=== PATIENT | male | born 1960 | race Asian ===

== ENCOUNTER 2017-06-08 20:38 | Emergency (ER) | payer SELFPAY ==
[~2017-06-08] VITALS: Ht 172.7 cm; Wt 76.0 kg
[2017-06-08 20:40] VITALS: Ht 172.7 cm; Wt 76.0 kg
--- NOTE | 2017-06-08 21:19 | ERD ---
ER Documentation Chief Complaint Date/Time DATE: 06/08/17 TIME: 21:17 Chief Complaint FELL OFF LADDER AT WORK AND HURT LEFT WRIST HPI 57-year-old male presents to emergency department for complaints of left wrist pain and swelling after landing on it while falling off the ladder tonight while at work. Patient described the pain as throbbing pain, 8/10 scale, is worse upon movement accompanied with swelling. Patient did not take any medication to help with symptoms. Denies any numbness or tingling. ROS All systems reviewed and are negative except as per history of present illness. Medications Home Meds Reported Medications [none] Unknown Strength No Conflict Check 06/08/17 Allergies Allergies: Coded Allergies: No Known Allergy (Unverified , 06/08/17) PMhx/Soc Medical and Surgical Hx: pt denies Medical Hx, pt denies Surgical Hx History of Surgery: No Anesthesia Reaction: No Hx Neurological Disorder: No Hx Respiratory Disorders: No Hx Cardiac Disorders: No Hx Psychiatric Problems: No Hx Miscellaneous Medical Probl: No Hx Alcohol Use: No Hx Substance Use: No Hx Tobacco Use: No Smoking Status: Never smoker FmHx Family History: No coronary disease, No diabetes, No other Physical Exam Vitals Vital Signs Date Time Temp Pulse Resp B/P Pulse Ox O2 Delivery O2 Flow Rate FiO2 06/08/17 20:40 100.0 109 18 135/79 95 Physical Exam GENERAL: The patient is well developed and appropriate for usual state of health, in no apparent distress. CHEST: Clear to auscultation bilaterally. There are no rales, wheezes or rhonchi. HEART: Regular rate and rhythm. No murmurs, clicks, rubs or gallops. No S3 or S4. ABDOMEN: Soft, nontender and nondistended. Good bowel sounds. No rebound or guarding. No gross peritonitis. No gross organomegaly or masses. No Raman sign or McBurney point tenderness. BACK: No midline or flank tenderness. EXTREMITIES: Noted swelling and tenderness on palpation on the radial and ulnar aspect of the left wrist, and able to do full range of motion because of the pain and swelling. Equal pulses bilaterally. Full range of motion of other the joints of the body. Grossly neurovascularly intact. NEURO: Alert and oriented. Cranial nerves 2-12 intact. Motor strength in all 4 extremities with 5/5 strength. Sensation grossly intact. Normal speech and gait. SKIN: There is no apparent rash or petechia. The skin is warm and dry. HEMATOLOGIC AND LYMPHATIC: There is no evidence of excessive bruising or lymphedema. No gross cervical, axillary, or inguinal lymphadenopathy. Results 24 hrs Current Medications Medications (Trade) Dose Ordered Sig/Porsche Route PRN Reason Start Time Stop Time Status Last Admin Dose Admin Acetaminophen/ Hydrocodone Bitart (Osborn (5/325)) 1 tab ONCE ONCE PO 06/08/17 21:30 06/08/17 21:31 DC 06/08/17 21:25 Ibuprofen (Motrin) 600 mg ONCE ONCE PO 06/08/17 21:30 06/08/17 21:31 DC 06/08/17 21:25 Patient was given medication for pain here in emergency department, after treatment, patient verbalized feeling much better. Patient's pain is improved. PROCEDURE: Left wrist radiographs. CLINICAL INDICATION: Trauma due to a fall. Left wrist pain. TECHNIQUE: 3 views. Frontal, lateral, and oblique. COMPARISON: No prior studies are available for comparison. FINDINGS: There is an acute transverse comminuted fracture through the distal metaphysis of the radius with impaction and angulation apex-anterior. The fracture probably extends to the distal articular surface. There is no other fracture and there is no dislocation. The articular surfaces are otherwise intact. There is diffuse soft tissue swelling overlying the fracture. There is no lytic or blastic lesion. There is no radiopaque foreign body. IMPRESSION: 1. Acute transverse comminuted fracture of the distal metaphysis of the radius with impaction and angulation apex-anterior. Probable intra-articular component of the fracture. 2. Diffuse soft tissue swelling overlying the fracture. 3. Otherwise unremarkable images of the left wrist. RPTAT: QQ .Rosendo Bolton MD, MD Date Time Electronically viewed and signed by .Rosendo Bolton MD, on 06/08/2017 22:01 .R/ CC: BENNIE PAULSON NP After receiving patients xray report, a sugartong splint was applied on the patients left wrist. After application of the splint, patient has intact sensation and circulation on distal area of the affected joint. Patient does not complain of numbness or tingling after application of the splint. Patient tolerated procedure well. Procedures/MDM Medical Decision Making: Patient's pain is most likely consistent with a left wrist fracture. There is no suspicion for neurovascular compromise. Patient has intact sensation and circulation of the affected extremity. There is low suspicion for septic arthritis. Patient does not have any fever. Radiology exams of the affected area does not show any dislocation. Disposition: Home. Patient is given prescription for ibuprofen for pain and Osborn for severe pain. Patient was advised to elevate the affected area and apply ice on affected area. Patient was advised that if symptoms are worse, numbness, tingling, high fever, unable to move joint, worsening symptoms, to return to emergency department immediately. Otherwise, patient is advised to follow up with the primary care doctor in 5-7 days for reevaluation of symptoms. Use the splint and sling as prescribed,see orthopedic doctor within 5- 7 days. Departure Diagnosis: Primary Impression: Radius fracture Encounter type: initial encounter Radius location: distal Fracture type: closed Fracture morphology: other intra-articular Laterality: left Qualified Code: S52.572A - Other closed intra-articular fracture of distal end of left radius, initial encounter Condition: Stable Patient Instructions: Fracture, Wrist [General] Additional Instructions: Patient is given prescription for ibuprofen for pain and Osborn for severe pain. Patient was advised to elevate the affected area and apply ice on affected area. Patient was advised that if symptoms are worse, numbness, tingling, high fever, unable to move joint, worsening symptoms, to return to emergency department immediately. Otherwise, patient is advised to follow up with the primary care doctor in 5-7 days for reevaluation of symptoms. Use the splint and sling as prescribed,see orthopedic doctor within 5-7 days. BENNIE PAULSON NP Jun 08, 2017 21:19
[2017-06-08] MEDS ORDERED: HYDROCODONE/APAP (5/325) TAB PO ONE (21:30)
[2017-06-08] MEDS ORDERED: IBUPROFEN 600 MG TAB PO ONE (21:30)
--- NOTE | 2017-06-08 22:02 | RADRPT ---
PROCEDURE: Left wrist radiographs. CLINICAL INDICATION: Trauma due to a fall. Left wrist pain. TECHNIQUE: 3 views. Frontal, lateral, and oblique. COMPARISON: No prior studies are available for comparison. FINDINGS: There is an acute transverse comminuted fracture through the distal metaphysis of the radius with im paction and angulation apex-anterior. The fracture probably extends to the distal articular surface . There is no other fracture and there is no dislocation. The articular surfaces are otherwise intact. There is diffuse soft tissue swelling overlying the fracture. There is no lytic or blastic lesion. There is no radiopaque foreign body. IMPRESSION: 1. Acute transverse comminuted fracture of the distal metaphysis of the radius with impaction and a ngulation apex-anterior. Probable intra-articular component of the fracture. 2. Diffuse soft tissue swelling overlying the fracture. 3. Otherwise unremarkable images of the left wrist. RPTAT: QQ .Rosendo Bolton MD, MD Date Time Electronically viewed and signed by .Rosendo Bolton MD, on 06/08/2017 22:01 .R/
[2017-06-08] MEDS ORDERED: IBUP-1542 PO (22:23)
[2017-06-08] MEDS ORDERED: HYDR-906 PO (22:23)
== END 2017-06-08 22:23 | disposition home or self-care (01) ==
LOC: FTE 20:38
DX: S52.572A Other intraarticular fracture of lower end of left radius, initial encounter for closed fracture (principal); W11.XXXA Fall on and from ladder, initial encounter; Y92.89 Other specified places as the place of occurrence of the external cause